=== PATIENT | male | born 2000 | race Two or more races ===

== ENCOUNTER 2022-06-02 16:24 | Emergency (ER) | payer MEDICAID, OTHER ==
[~2022-06-02] VITALS: Ht 175.3 cm; Wt 93.3 kg
[2022-06-02] MEDS ORDERED: ONDA-144 PO (19:26)
[2022-06-02 19:50] VITALS: BP 108/65
== END 2022-06-02 19:52 | disposition home or self-care (01) ==
LOC: ER 16:24
DX: S16.1XXA Strain of muscle, fascia and tendon at neck level, initial encounter (principal); S09.90XA Unspecified injury of head, initial encounter; W51.XXXA Accidental striking against or bumped into by another person, initial encounter; Y93.79 Activity, other specified sports and athletics; Y92.89 Other specified places as the place of occurrence of the external cause; Y99.8 Other external cause status; F07.81 Postconcussional syndrome
CPT/HCPCS: 70450; 72125

== ENCOUNTER 2022-12-04 13:04 | Emergency (ER) | payer MEDICAID, OTHER ==
[~2022-12-04] VITALS: Ht 175.3 cm; Wt 81.6 kg
[~2022-12-04 13:04] MED LIST: ONDA-144 PO
[2022-12-04] MEDS ORDERED: AUG875T PO (14:28)
[2022-12-04] MEDS ORDERED: IBU600T PO (14:28)
[2022-12-04] MEDS ORDERED: OFL50TS OT ×2 (14:28→14:31)
[2022-12-04] MEDS ORDERED: HYDROcodone-ACET 5/325MG TAB PO ONE (14:45)
[2022-12-04 14:57] VITALS: BP 104/67; PULSE 72; RESP 18; TEMP 97.6; O2SAT 100
== END 2022-12-04 15:13 | disposition home or self-care (01) ==
LOC: ER 13:04
DX: H61.22 Impacted cerumen, left ear (principal); H66.92 Otitis media, unspecified, left ear
CPT/HCPCS: 69209

== ENCOUNTER 2022-12-08 23:02 | Emergency (ER) | payer OTHER ==
[~2022-12-08] VITALS: Ht 175.3 cm; Wt 82.7 kg
[~2022-12-08 23:02] MED LIST changes: +AUG875T PO; +IBU600T PO; +OFL50TS OT
[2022-12-09] MEDS ORDERED: IBUP-1456 PO (01:27)
[2022-12-09 02:00] VITALS: BP 119/69; PULSE 68; RESP 17; TEMP 97.9; O2SAT 98
== END 2022-12-09 02:00 | disposition home or self-care (01) ==
LOC: ER 23:04
DX: S93.402A Sprain of unspecified ligament of left ankle, initial encounter (principal); W21.02XA Struck by soccer ball, initial encounter; Y93.66 Activity, soccer; Y92.89 Other specified places as the place of occurrence of the external cause; Y99.8 Other external cause status
CPT/HCPCS: 73600; 73620

== ENCOUNTER 2023-01-02 10:07 | Emergency (ER) | payer OTHER ==
[~2023-01-02] VITALS: Ht 175.3 cm; Wt 82.9 kg
[~2023-01-02 10:07] MED LIST changes: +IBUP-1456 PO
[2023-01-02 10:37] VITALS: BP 104/54; PULSE 68; RESP 16; TEMP 98.3; O2SAT 97
[2023-01-02] MEDS ORDERED: LIDOCAINE 1% HCL (LOCAL ANESTH.) INJ 20ML MDV IJ ONE (11:00)
[2023-01-02] MEDS ORDERED: IBUP-1456 PO (11:14)
[2023-01-02] MEDS ORDERED: BACDST PO (11:14)
== END 2023-01-02 11:18 | disposition home or self-care (01) ==
LOC: ER 10:07
DX: L02.213 Cutaneous abscess of chest wall (principal); Z79.899 Other long term (current) drug therapy
CPT/HCPCS: 10060

== ENCOUNTER 2023-01-04 07:02 | Emergency (ER) | payer OTHER ==
[~2023-01-04] VITALS: Ht 175.3 cm; Wt 80.6 kg
[~2023-01-04 07:02] MED LIST changes: +BACDST PO
[2023-01-04 07:28] VITALS: BP 105/68; PULSE 65; RESP 16
[2023-01-04 08:38] VITALS: O2SAT 98
== END 2023-01-04 08:27 | disposition home or self-care (01) ==
LOC: ER 07:02
DX: L02.213 Cutaneous abscess of chest wall (principal); Z79.1 Long term (current) use of non-steroidal anti-inflammatories (NSAID); Z79.2 Long term (current) use of antibiotics; Z79.899 Other long term (current) drug therapy